=== PATIENT | male | born 1960 | race Caucasian/White ===

== ENCOUNTER → 2017-01-10 | Outpatient (REF) | payer SELFPAY | LOC: M LABDRAW1 12:17 | PROVIDERS: ATTEND Internal Medicine Endocrinology, Diabetes & Metabolism | DX: E06.3 Autoimmune thyroiditis (principal); E78.00 Pure hypercholesterolemia, unspecified ==

== ENCOUNTER → 2018-01-14 | Outpatient (REF) | payer BC ==
[2018-01-14 13:44] LABS: ALBUMIN 4.3 GM/DL (3.2-5.2); ALBUMIN/GLOBULIN RATIO 1.39 (1.00-1.93); ALKALINE PHOSPHATASE 72 U/L (45-117); ALT/SGPT 43 U/L (12-78); AST/SGOT 24 U/L (7-37); BILIRUBIN,DIRECT 0.2 MG/DL (0.0-0.2); BILIRUBIN,TOTAL 0.6 MG/DL (0.2-1.0); CHOLESTEROL LEVEL 192 MG/DL (<200); HDL CHOLESTEROL 48 MG/DL (>40); NON-HDL-C 144 MG/DL; TOTAL PROTEIN 7.4 GM/DL (6.4-8.2); TRIGLYCERIDES LEVEL 110 MG/DL (<150)
== END ==
LOC: M LAB REF 11:38
DX: E78.00 Pure hypercholesterolemia, unspecified (principal); E06.3 Autoimmune thyroiditis
CPT/HCPCS: 84443

== ENCOUNTER → 2018-02-20 | Outpatient (REF) | payer BC ==
[2018-02-20 12:21] LABS: THYROID STIMULATING HORMONE 0.909 uIU/ML (0.358-3.740)
== END ==
LOC: M LABDRAW1 08:27
DX: E06.3 Autoimmune thyroiditis (principal)
CPT/HCPCS: 84443

== ENCOUNTER → 2018-05-21 | Outpatient (REF) | payer BC ==
[2018-05-21 13:44] LABS: CHOLESTEROL LEVEL 166 MG/DL (<200); CHOLESTEROL RISK RATIO 3.254 (<5); FREE T4 1.21 NG/DL (0.76-1.46); HDL CHOLESTEROL 51 MG/DL (>40); LDL CHOLESTEROL 93.6 MG/DL (<100); NON-HDL-C 115 MG/DL; THYROID STIMULATING HORMONE 0.914 uIU/ML (0.358-3.740); TRIGLYCERIDES LEVEL 107 MG/DL (<150)
== END ==
LOC: M LABDRAW1 12:28
DX: E78.00 Pure hypercholesterolemia, unspecified (principal)
CPT/HCPCS: 84443

== ENCOUNTER → 2018-11-19 | Outpatient (REF) | payer BC ==
[2018-11-19 13:15] LABS: CHOLESTEROL RISK RATIO 3.12 (<5); THYROID STIMULATING HORMONE 0.883 uIU/ML (0.358-3.740)
== END ==
LOC: M LABDRAW1 11:45
PROVIDERS: ATTEND Internal Medicine Endocrinology, Diabetes & Metabolism
DX: E06.3 Autoimmune thyroiditis (principal); E78.00 Pure hypercholesterolemia, unspecified

== ENCOUNTER → 2019-10-04 | Outpatient (REF) | payer BC | LOC: M LAB REF 12:16 | PROVIDERS: ATTEND Internal Medicine | DX: N52.9 Male erectile dysfunction, unspecified (principal) ==

== ENCOUNTER → 2020-03-06 | Outpatient (CLI) | payer BC ==
[2020-03-06 12:56] LABS: CHOLESTEROL RISK RATIO 3.418 (<5); THYROID STIMULATING HORMONE 2.13 uIU/ML (0.358-3.740)
== END ==
LOC: M WUC 09:27
PROVIDERS: ATTEND Internal Medicine Endocrinology, Diabetes & Metabolism
DX: E78.00 Pure hypercholesterolemia, unspecified (principal); E06.3 Autoimmune thyroiditis

== ENCOUNTER → 2020-07-03 | Outpatient (CLI) | payer BC ==
[2020-07-03 10:35] LABS: ALBUMIN 4.1 GM/DL (3.2-5.2); ALT/SGPT 48 U/L (12-78); BILIRUBIN,TOTAL 0.8 MG/DL (0.2-1.0); BLOOD UREA NITROGEN 24 MG/DL (7-18); CALCIUM LEVEL 8.8 MG/DL (8.8-10.2); CARBON DIOXIDE LEVEL 27 MEQ/L (21-32); CHLORIDE LEVEL 108 MEQ/L (98-107); CHOLESTEROL LEVEL 175 MG/DL (<200); CHOLESTEROL RISK RATIO 3.431 (<5); CREATININE FOR GFR 1.14 MG/DL (0.70-1.30); GLOMERULAR FILTRATION RATE > 60.0 (>49); GLUCOSE, FASTING 99 MG/DL (70-100); HDL CHOLESTEROL 51 MG/DL (>40); LDL CHOLESTEROL 100 MG/DL (<100); NON-HDL-C 124 MG/DL; POTASSIUM SERUM 4.5 MEQ/L (3.5-5.1); SODIUM LEVEL 139 MEQ/L (136-145); TOTAL PROTEIN 7.1 GM/DL (6.4-8.2); TRIGLYCERIDES LEVEL 122 MG/DL (<150)
== END ==
LOC: M WUC 08:09
PROVIDERS: ATTEND Nurse Practitioner Family
DX: E78.00 Pure hypercholesterolemia, unspecified (principal)

== ENCOUNTER → 2021-01-08 | Outpatient (CLI) | payer BC ==
[2021-01-08 10:17] LABS: ALBUMIN 4.2 GM/DL (3.2-5.2); ALT/SGPT 39 U/L (12-78); BILIRUBIN,TOTAL 0.5 MG/DL (0.2-1.0); BLOOD UREA NITROGEN 24 MG/DL (7-18); CALCIUM LEVEL 8.8 MG/DL (8.8-10.2); CARBON DIOXIDE LEVEL 26 MEQ/L (21-32); CHLORIDE LEVEL 109 MEQ/L (98-107); CHOLESTEROL LEVEL 187 MG/DL (<200); CHOLESTEROL RISK RATIO 3.462 (<5); CREATININE FOR GFR 0.98 MG/DL (0.70-1.30); FREE T4 1.29 NG/DL (0.76-1.46); GLOMERULAR FILTRATION RATE > 60.0 (>49); GLUCOSE, FASTING 93 MG/DL (70-100); HDL CHOLESTEROL 54 MG/DL (>40); LDL CHOLESTEROL 109 MG/DL (<100); NON-HDL-C 133 MG/DL; POTASSIUM SERUM 4.5 MEQ/L (3.5-5.1); SODIUM LEVEL 141 MEQ/L (136-145); TOTAL PROTEIN 7.2 GM/DL (6.4-8.2); TRIGLYCERIDES LEVEL 119 MG/DL (<150)
== END ==
LOC: M WUC 08:28
PROVIDERS: ATTEND Nurse Practitioner Family
DX: E06.3 Autoimmune thyroiditis (principal); E78.00 Pure hypercholesterolemia, unspecified

== ENCOUNTER → 2021-02-09 | Outpatient (CLI) | payer BC ==
[~2021-02-09] MED LIST: AUGM0.0534; LEVO125T41; ROSU10TA6; SILD100T
== END ==
LOC: M LABSMTC 10:34
PROVIDERS: ATTEND Anesthesiology
DX: Z01.812 Encounter for preprocedural laboratory examination (principal); Z20.822 Contact with and (suspected) exposure to COVID-19

== ENCOUNTER 2021-02-14 07:29 | Day surgery (SDC) | payer BC ==
[~2021-02-14] VITALS: Ht 182.9 cm; Wt 109.3 kg
[~2021-02-14 07:29] MED LIST changes: +NS 1,000 ML IV ONE
[2021-02-14] MEDS ORDERED: propofoL 200 MG/20 ML VIAL As Ordered ONE (08:31)
--- NOTE | 2021-02-14 08:47 | ROOR ---
Patient Name: Bon Cruz Procedure Date: 02/14/2021 8:22 AM Date of : 1960 Age: 60 Room: [facility] Gender: Male Note Status: Finalized Procedure: Total Colonoscopy to Cecum + Cold Snare Polypectomy Indications: High risk colon cancer surveillance: Personal history of colonic polyps, Incidental - Positive Cologuard test Providers: Stalin Bui MD Referring MD: TRICIA SNOW JR, MD Requesting Provider: Medicines: Monitored Anesthesia Care Complications: No immediate complications. Procedure: Pre-Anesthesia Assessment: - The heart rate, respiratory rate, oxygen saturations, blood pressure, adequacy of pulmonary ventilation, and response to care were monitored throughout the procedure. The Colonoscope was introduced through the anus and advanced to the cecum, identified by appendiceal orifice and ileocecal valve. The colonoscopy was performed without difficulty. The patient tolerated the procedure well. The quality of the bowel preparation was good. Findings: The perianal and digital rectal examinations were normal. Non-bleeding internal hemorrhoids were found during retroflexion. The hemorrhoids were small and Grade I (internal hemorrhoids that do not prolapse). Multiple small and large-mouthed diverticula were found in the recto-sigmoid colon, sigmoid colon and descending colon. A small polyp was found in the transverse colon. The polyp was sessile. The polyp was removed with a cold snare. Resection and retrieval were complete. The exam was otherwise without abnormality on direct and retroflexion views. Impression: - Non-bleeding internal hemorrhoids. - Diverticulosis in the recto-sigmoid colon, in the sigmoid colon and in the descending colon. - One small polyp in the transverse colon, removed with a cold snare. Resected and retrieved. - The examination was otherwise normal on direct and retroflexion views. - The exam was otherwise normal to the cecum. Recommendation: - Patient has a contact number available for emergencies. The signs and symptoms of potential delayed complications were discussed with the patient. Return to normal activities tomorrow. Written discharge instructions were provided to the patient. - High fiber diet. - Discharge patient to home. - Continue present medications. - Await pathology results. - Telephone GI clinic for pathology results in 1 week. - Repeat colonoscopy in 5 years for surveillance based on pathology results. - Return to referring physician. - The findings and recommendations were discussed with the patient's family. Procedure Code(s): --- Professional --- 31656, Colonoscopy, flexible; with removal of tumor(s), polyp(s), or other lesion(s) by snare technique Diagnosis Code(s): --- Professional --- Z86.010, Personal history of colonic polyps K64.0, First degree hemorrhoids K63.5, Polyp of colon K57.30, Diverticulosis of large intestine without perforation or abscess without bleeding CPT copyright 2019 [employer]. All rights reserved. The codes documented in this report are preliminary and upon horticultural technical officer review may be revised to meet current compliance requirements. Stalin Bui MD Stalin Bui MD 02/14/2021 8:46:13 AM Electronically signed by Stalin Bui MD Number of Addenda: 0 Note Initiated On: 02/14/2021 8:22 AM Estimated Blood Loss: Estimated blood loss: none.
[2021-02-14 09:00] VITALS: BP 141/71
== END 2021-02-14 09:11 | disposition home or self-care (01) ==
LOC: M OPP 07:29
PROVIDERS: ATTEND Internal Medicine Gastroenterology
DX: R19.5 Other fecal abnormalities (principal); Z86.010 Personal history of colon polyps; D12.3 Benign neoplasm of transverse colon; K64.0 First degree hemorrhoids; K57.30 Diverticulosis of large intestine without perforation or abscess without bleeding; E03.9 Hypothyroidism, unspecified; L40.9 Psoriasis, unspecified; Z79.899 Other long term (current) drug therapy

== ENCOUNTER → 2021-11-02 | Outpatient (REF) | payer BC ==
[~2021-11-02] MED LIST changes: -NS 1,000 ML IV ONE
== END ==
LOC: M LAB REF 11:28
PROVIDERS: ATTEND Internal Medicine
DX: N52.9 Male erectile dysfunction, unspecified (principal)

== ENCOUNTER → 2022-07-09 | Outpatient (CLI) | payer BC ==
[2022-07-09 12:01] LABS: CHOLESTEROL RISK RATIO 2.515 (<5); FREE T4 1.35 NG/DL (0.76-1.46); THYROID STIMULATING HORMONE 1.71 uIU/ML (0.358-3.740)
== END ==
LOC: M WUC 08:19
PROVIDERS: ATTEND Internal Medicine Endocrinology, Diabetes & Metabolism
DX: E78.00 Pure hypercholesterolemia, unspecified (principal)

== ENCOUNTER 2022-09-16 19:22 | Emergency (ER) | payer BC ==
[~2022-09-16] VITALS: Ht 182.9 cm; Wt 110.3 kg
[2022-09-16 19:22] VITALS: BP 160/99
== END 2022-09-16 23:26 | disposition left against medical advice (07) ==
LOC: M ED 19:22
DX: Z53.21 Procedure and treatment not carried out due to patient leaving prior to being seen by health care provider (principal)

== ENCOUNTER → 2022-11-05 | Outpatient (REF) | payer BC | LOC: M LAB REF 11:17 | PROVIDERS: ATTEND Internal Medicine | DX: N52.9 Male erectile dysfunction, unspecified (principal) ==

== ENCOUNTER → 2024-07-13 | Outpatient (CLI) | payer BC ==
[~2024-07-13] MED LIST changes: -ROSU10TA6; +ROSU10TA61
[2024-07-13 11:37] LABS: FREE T4 2.01 NG/DL (0.89-1.76); THYROID STIMULATING HORMONE 1.695 uIU/ML (0.55-4.78)
[2024-07-13 11:38] LABS: ALBUMIN 3.9 G/DL (3.2-5.2); ALKALINE PHOSPHATASE 85 U/L (46-116); ALT/SGPT 42 U/L (7.0-40); AST/SGOT 22 U/L (<34); BILIRUBIN,TOTAL 0.7 MG/DL (0.3-1.2); BLOOD UREA NITROGEN 19 MG/DL (9-23); CALCIUM LEVEL 9.6 MG/DL (8.3-10.6); CARBON DIOXIDE LEVEL 28 MMOL/L (20-31); CHLORIDE LEVEL 106 MMOL/L (98-107); CHOLESTEROL LEVEL 167 MG/DL (<200); CHOLESTEROL RISK RATIO 3.92 (<5); CREATININE FOR GFR 0.94 MG/DL (0.70-1.30); GLOMERULAR FILTRATION RATE > 60.0 (>49); GLUCOSE, FASTING 102 MG/DL (74-106); HDL CHOLESTEROL 42.6 MG/DL (>40); LDL CHOLESTEROL 105.2 MG/DL (<100); NON-HDL-C 124.4 MG/DL; POTASSIUM SERUM 4.9 MMOL/L (3.5-5.1); SODIUM LEVEL 140 MMOL/L (136-145); TRIGLYCERIDES LEVEL 96 MG/DL (<150)
== END ==
LOC: M WUC 08:49
PROVIDERS: ATTEND Nurse Practitioner Family
DX: E06.3 Autoimmune thyroiditis (principal); E78.00 Pure hypercholesterolemia, unspecified

== ENCOUNTER → 2024-11-18 | Outpatient (CLI) | payer BC, MEDICARE ==
[2024-11-18 11:26] LABS: ALKALINE PHOSPHATASE 70 U/L (40-129); ALT/SGPT 41 U/L (7.0-40); AST/SGOT 24 U/L (<34); BILIRUBIN,TOTAL 0.7 MG/DL (0.3-1.2); BLOOD UREA NITROGEN 22 MG/DL (9-23); CALCIUM LEVEL 9.4 MG/DL (8.3-10.6); CARBON DIOXIDE LEVEL 27 MMOL/L (20-31); CHLORIDE LEVEL 107 MMOL/L (98-107); CHOLESTEROL LEVEL 192 MG/DL (<200); CHOLESTEROL RISK RATIO 3.25 (<5); CREATININE FOR GFR 0.94 MG/DL (0.70-1.30); GLOMERULAR FILTRATION RATE > 60.0 (>49); GLUCOSE, FASTING 99 MG/DL (74-106); HDL CHOLESTEROL 58.9 MG/DL (>40); LDL CHOLESTEROL 112.9 MG/DL (<100); NON-HDL-C 133.1 MG/DL; POTASSIUM SERUM 4.9 MMOL/L (3.5-5.1); SODIUM LEVEL 144 MMOL/L (136-145); TOTAL PROTEIN 7.2 G/DL (5.7-8.2); TRIGLYCERIDES LEVEL 101 MG/DL (<150)
[2024-11-18 11:29] LABS: FREE T4 1.73 NG/DL (0.89-1.76)
[2024-11-18 11:30] LABS: THYROID STIMULATING HORMONE 4.008 uIU/ML (0.55-4.78)
== END ==
LOC: M WUC 08:37
PROVIDERS: ATTEND Nurse Practitioner Family
DX: E06.3 Autoimmune thyroiditis (principal); E78.00 Pure hypercholesterolemia, unspecified

== ENCOUNTER → 2024-11-18 | Outpatient (CLI) | payer BC, MEDICARE ==
[2024-11-22 16:11] LABS: LYME TOTAL ANTIBODY CIA <= 0.90 Index (<=0.90)
== END ==
LOC: M WUC 08:33
PROVIDERS: ATTEND Internal Medicine
DX: Z12.5 Encounter for screening for malignant neoplasm of prostate (principal); Z11.8 Encounter for screening for other infectious and parasitic diseases
CPT/HCPCS: 36415; 86618; G0103

== ENCOUNTER → 2025-06-13 | Outpatient (CLI) | payer MEDICARE ==
[2025-06-13 13:34] LABS: FREE T4 1.91 NG/DL (0.89-1.76)
[2025-06-13 13:36] LABS: ALT/SGPT 34.0 U/L (7.0-40); AST/SGOT 22.0 U/L (<34); CALCIUM LEVEL 9.2 MG/DL (8.3-10.6); CARBON DIOXIDE LEVEL 28.0 MMOL/L (20-31); CHLORIDE LEVEL 107.0 MMOL/L (98-107); CHOLESTEROL LEVEL 178.0 MG/DL (<200); CHOLESTEROL RISK RATIO 3.18 (<5); CREATININE FOR GFR 0.97 MG/DL (0.70-1.30); GLOMERULAR FILTRATION RATE 86.6 (>49); LDL CHOLESTEROL 97.9 MG/DL (<100); NON-HDL-C 122.1 MG/DL; POTASSIUM SERUM 4.9 MMOL/L (3.5-5.1); SODIUM LEVEL 141.0 MMOL/L (136-145); TRIGLYCERIDES LEVEL 121.0 MG/DL (<150)
== END ==
LOC: M WUC 08:38
PROVIDERS: ATTEND Nurse Practitioner Family
DX: E06.3 Autoimmune thyroiditis (principal)